=== PATIENT | female | born 1940 | race African-American/Black ===

== ENCOUNTER 2016-11-28 14:32 | Emergency (ER) | payer MEDICARE, OTHER ==
[~2016-11-28] VITALS: Ht 165.1 cm; Wt 136.4 kg
[~2016-11-28 14:32] MED LIST: ADV250 IH; ALBU8.5H3 IH; ASCO500 PO; ATOR20TA86 PO; CHOL20004 PO; ESCI10TA PO; EXEM25 PO; LEVO500 PO; MELO-273 PO; METO100XL PO; MONT10TA21 PO; OMEP20 PO; PANT40TA PO
[2016-11-28] MEDS ORDERED: HYDR25TA PO (14:46)
[2016-11-28] MEDS ORDERED: ADV500 IH (14:46)
[2016-11-28] MEDS ORDERED: PRED10 PO (14:46)
[2016-11-28] MEDS ORDERED: GABA-531 PO (14:46)
[2016-11-28] MEDS ORDERED: VALS160T2 PO (14:46)
[2016-11-28] MEDS ORDERED: FAMO20 PO (14:46)
[2016-11-28] MEDS ORDERED: MAG HYDROX/AL HYDROX/SIMETH ES 30 ML SUSPENSION UDCUP PO ONE (17:00)
[2016-11-28] MEDS ORDERED: LIDOCAINE HCL 2% VISCOUS 15 ML SOLUTION UDCUP PO ONE (17:00)
[2016-11-28 17:27] VITALS: BP 115/93
== END 2016-11-28 17:28 | disposition home or self-care (01) ==
LOC: EMS 14:34
DX: J06.9 Acute upper respiratory infection, unspecified (principal); J44.9 Chronic obstructive pulmonary disease, unspecified; J45.909 Unspecified asthma, uncomplicated; I10 Essential (primary) hypertension
CPT/HCPCS: 99283